=== PATIENT | female | born 1960 | race African-American/Black ===

== ENCOUNTER 2017-05-26 18:44 | Emergency (ER) | payer BC, OTHER ==
[~2017-05-26] VITALS: Ht 157.5 cm; Wt 66.2 kg
--- NOTE | ~2017-05-26 | EKG ---
[place] [address] [facility] [place] [address] ELECTROCARDIOGRAM REPORT Name: JOEL HAMILTON Room #: [facility]P [facility]ENTERIngrisIngr[facility] [id number] Admission: 05/26/17 Attend Phys: Discharge: 05/26/17 Date of : 60 Report #: [id number] THIS REPORT FOR: //name// [facility] ED Test Date: 2017-05-26 Test Time: 19:20:46 Pat Name: JOEL HAMILTON Department: Room: Gender: F Feed Inspection Supervisor: [id number] : [id number] Requested By: Elmo Abarca Order Number: [id number] MD: Ascencion Joseph Measurements Intervals White Rate: 57 P: 46 AR: 182 QRS: 49 QRSD: 91 T: 42 QT: 438 QTc: 427 Interpretive Statements Sinus bradycardia Otherwise no significant abnormality No previous ECG available for comparison Electronically Signed On 05-29-2017 8:33:27 CDT by Ascencion Joseph [email or web address] <ELECTRONICALLY SIGNED> By: Ascencion Joseph MD, [facility] 05/29/17 0833 1920 19 Ascencion Joseph MD, FACC /EPI
[2017-05-26 19:36] LABS: ABSOLUTE NEUTROPHILS 3.5 thou/uL (1.4-8.2); BASOPHILS 0.8 % (0.0-2.0); EOSINOPHILS 1.2 % (0.0-3.0); HEMATOCRIT 38.8 % (37.0-47.0); HEMOGLOBIN 12.7 gm/dL (12.0-15.0); LYMPHOCYTES 49.9 % (24.0-44.0); MCH 27.2 pg (26.0-34.0); MCHC 32.7 g/dL (28.0-37.0); MONOCYTES 6.9 % (1.0-8.0); PLATELET COUNT 225 thou/uL (150-400); POLYS 41.2 % (36.0-66.0); RBC 4.68 mil/uL (4.20-5.00); RDW 14.5 % (10.5-14.5); WBC 8.5 thou/uL (4.0-11.0)
[2017-05-26 19:38] LABS: CALCIUM 9.2 mg/dL (8.5-10.1); MANUAL DIFF NO; POTASSIUM 3.8 mmol/L (3.5-5.1)
[2017-05-26 19:45] LABS: ALBUMIN 3.6 g/dL (3.4-5.0); DIRECT BILIRUBIN 0.1 mg/dL (<0.1-0.3); TOTAL BILIRUBIN 0.4 mg/dL (<0.1-1.0); TOTAL PROTEIN 7.2 g/dL (6.4-8.2)
[2017-05-26] MEDS ORDERED: ANTIVERT25 MG PO (20:36)
[2017-05-26 21:08] VITALS: BP 134/79
== END 2017-05-26 21:10 | disposition home or self-care (01) ==
LOC: ER 18:44
PROVIDERS: Physician Assistant
DX: R42 Dizziness and giddiness (principal); F17.210 Nicotine dependence, cigarettes, uncomplicated; F10.99 Alcohol use, unspecified with unspecified alcohol-induced disorder; F15.10 Other stimulant abuse, uncomplicated; Z90.710 Acquired absence of both cervix and uterus; Z98.890 Other specified postprocedural states